=== PATIENT | male | born 1950 | race Caucasian/White ===

== ENCOUNTER 2023-04-06 14:26 | Outpatient (AMB) | payer MEDICARE, SELFPAY ==
--- NOTE | 2023-04-06 14:57 | HO.NEPHOV ---
HPI HPI Comments History of Present Illness Details I had the privilege of seeing Mr. 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 He has history of coronary artery disease( mid LAD) needing stenting in 2016. His last carotid ultrasound showed less than 50% stenosis bilaterally. He had 2 episodes of syncopal episodes which was thought to be due to orthostasis. He is on multiple antihypertensive medications including amlodipine 5 mg twice daily, carvedilol 3.125 mg twice daily, ruled chlorthalidone 12.5 mg daily, olmesartan 40 mg daily. He has not had an echocardiogram from long time. His renal functions are normal. He does not have any chest pain, shortness of breath, proximal nocturnal dyspnea, orthopnea, pedal edema, hematuria or orthostatic symptoms. He was accompanied by his during this visit and not have any specific complaints. REPLACED BY [facility] Medical History (Updated 04/06/23 @ 15:54 by Goran Madera MD) Syncope Sebaceous cyst Right knee pain Macrocytosis Hypertension Hyperlipidemia H/O adenomatous polyp of colon Edema leg Erectile disorder Coronary arteriosclerosis Adjustment disorder Surgical History (Updated 04/06/23 @ 15:03 by Angely Castro MA) History of hip replacement History of surgery on arm H/O colonoscopy H/O coronary angioplasty Social History (Updated 04/06/23 @ 15:04 by Angely Castro MA) Alcohol intake: current Comment: Occasional Patient Tobacco Use Status: Never used Tobacco Vital Signs 04/06/23 14:58 Height 5 ft 8 in Weight 183 lb 2 oz BMI 27.8 BP 122/80 Blood Pressure Location Lt brachial Position Sitting Pulse 58 Pulse Source Pulse Oximeter Pulse Oximetry (%) 97 Oxygen Delivery Method Room Air Physical Exam Vital Signs: Last Vital Signs Pulse 58 04/06/23 14:58 BP 122/80 04/06/23 14:58 Pulse Ox 97 04/06/23 14:58 Oxygen Delivery Method Room Air 04/06/23 14:58 BMI result Body Mass Index 27.8 Const General: comfortable and no acute distress Orientation/consciousness: patient oriented x3 HEENT Head: Yes normocephalic Mouth: Normal oral and palatal mucosa present Eyes EOM: EOMs intact bilaterally Neck Other: Carotid bruit present Neck: Yes supple Resp Auscultation: clear to auscultation bilaterally Cardio Jugular venous distension: no JVD Rate: regular rate GI Palpation (GI): Soft to palpation Auscultation: normal bowel sounds General: Yes no CVA tenderness Back/Spine/Pelvis Back: no CVA tenderness Skin General skin exam: no rashes or lesions noted Neuro General: patient oriented x3 and moves all extremities Extrem General: Yes no pedal edema Assessment & Plan Assessment & Plan (1) Hypertension: Code(s): I10 - Essential (primary) hypertension Qualifiers: Hypertension type: primary hypertension Qualified Code(s): I10 - Essential (primary) hypertension Plan Mr. Javier most likely has renovascular disease. He has history of coronary artery disease needing stenting of the mid LAD in 2016. His last carotid ultrasound showed bilateral stenosis less than 50%. He never had Doppler of his renal arteries. He has no history of hypokalemia or worsening serum creatinine. He is tolerating all medications including statins. He had episodes of syncope which was thought due to orthostatic hypotension. He has not had an echocardiogram for long time. If his ejection fraction is appropriate, I plan to switch is carvedilol to metoprolol. He has no history of heart failure. He does not consume excess sodium in the diet. He maintains good hydration. I did not make any medication changes at this time but shall consider switching his antihypertensive medications to keep it minimal in number & also can keep his blood pressure at goal. Further management is pending evolving data. Answered all questions. Follow-up appointment given. Orders: Orders US renal BI 04/06/23 I10 - Essential (primary) hypertension US renal doppler 04/06/23 I10 - Essential (primary) hypertension Coding Level of Care Code New Pt Level 4 (15271) Diagnoses Primary hypertension I10 Hypertension type: primary hypertension Results Reviewed Nephrology Results: No Data to Display
[2023-04-06 14:58] VITALS: BP 122/80; PULSE 58; O2SAT 97; BMI 27.8
== END 2023-04-06 16:02 | disposition home or self-care (01) ==
PROVIDERS: PCP Family Medicine; Visit Provider Internal Medicine Nephrology
DX: I10 Essential (primary) hypertension (principal)
CPT/HCPCS: 99204

== ENCOUNTER → 2023-04-06 14:26 | Outpatient (BNVA) | payer MEDICARE, SELFPAY | PROVIDERS: PCP Family Medicine; Visit Provider Internal Medicine Nephrology | DX: I10 Essential (primary) hypertension (principal) | CPT/HCPCS: 99202 ==

== ENCOUNTER 2023-05-02 08:45 | Outpatient (REF) | payer MEDICARE, SELFPAY ==
--- NOTE | ~2023-05-02 | US_ITS ---
EXAMINATION: ULTRASOUND RENAL WITH DOPPLER CLINICAL INFORMATION: Hypertension COMPARISON: None. TECHNIQUE: Real-time grayscale, color Doppler, and duplex Doppler evaluation of the kidneys and renal vasculature was performed. FINDINGS: RENAL MEASUREMENTS: Right: 14.3 x 7.3 x 4.1 cm (Sag x AP x TV) Left: 12.4 x 6.2 x 6.6 cm (Sag x AP x TV) Multiple anechoic simple cysts seen throughout the bilateral kidneys. There is a 1 cyst in the left mid kidney middle pole measuring 3.1 x 3.6 x 3.6 cm that contains a small mural nodule. Bilateral renal parenchyma is otherwise unremarkable. No hydronephrosis bilaterally. Incidental note made of multiple right hepatic cysts. DOPPLER INTERROGATION: Aorta: 114 cm/sec Right Main Renal Artery: Proximal: 134 cm/sec Mid: 67.0 cm/sec Distal: 81.2 cm/sec Right Segmental Renal Artery Resistive Indices: Upper: 0.68 Mid: 0.68 Lower: 0.69 Left Main Renal Artery: Proximal: 110 cm/sec Mid: 60.5 cm/sec Distal: 133 cm/sec Left Segmental Renal Artery Resistive Indices: Upper: 0.66 Mid: 0.74 Lower: 0.7 The bilateral renal veins are patent. US/US renal doppler IMPRESSION: Normal duplex ultrasound of the renal arteries. Multiple bilateral renal cysts, most of which are simple in nature. One cyst in the left mid pole has a small mural nodule. Lesion is Bosniak 2F recommend follow-up with MRI
--- NOTE | ~2023-05-02 | US_ITS ---
EXAMINATION: ULTRASOUND RENAL WITH DOPPLER CLINICAL INFORMATION: Hypertension COMPARISON: None. TECHNIQUE: Real-time grayscale, color Doppler, and duplex Doppler evaluation of the kidneys and renal vasculature was performed. FINDINGS: RENAL MEASUREMENTS: Right: 14.3 x 7.3 x 4.1 cm (Sag x AP x TV) Left: 12.4 x 6.2 x 6.6 cm (Sag x AP x TV) Multiple anechoic simple cysts seen throughout the bilateral kidneys. There is a 1 cyst in the left mid kidney middle pole measuring 3.1 x 3.6 x 3.6 cm that contains a small mural nodule. Bilateral renal parenchyma is otherwise unremarkable. No hydronephrosis bilaterally. Incidental note made of multiple right hepatic cysts. DOPPLER INTERROGATION: Aorta: 114 cm/sec Right Main Renal Artery: Proximal: 134 cm/sec Mid: 67.0 cm/sec Distal: 81.2 cm/sec Right Segmental Renal Artery Resistive Indices: Upper: 0.68 Mid: 0.68 Lower: 0.69 Left Main Renal Artery: Proximal: 110 cm/sec Mid: 60.5 cm/sec Distal: 133 cm/sec Left Segmental Renal Artery Resistive Indices: Upper: 0.66 Mid: 0.74 Lower: 0.7 The bilateral renal veins are patent. US/US renal BI IMPRESSION: Normal duplex ultrasound of the renal arteries. Multiple bilateral renal cysts, most of which are simple in nature. One cyst in the left mid pole has a small mural nodule. Lesion is Bosniak 2F recommend follow-up with MRI
== END 2023-05-02 08:46 | disposition home or self-care (01) ==
LOC: HO.US 08:45
PROVIDERS: PCP Family Medicine; Visit Provider Internal Medicine Nephrology
DX: I10 Essential (primary) hypertension (principal)
CPT/HCPCS: 76775; 93975

== ENCOUNTER 2023-05-04 10:53 | Outpatient (AMB) | payer MEDICARE, SELFPAY ==
[2023-05-04 11:22] VITALS: BP 138/74; PULSE 62; O2SAT 95; BMI 28.3
--- NOTE | 2023-05-04 11:22 | HO.NEPHOV ---
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 He has history of coronary artery disease( mid LAD) needing stenting in 2016. His last carotid ultrasound showed less than 50% stenosis bilaterally. He had 2 episodes of syncopal episodes which was thought to be due to orthostasis. He is on multiple antihypertensive medications including amlodipine 5 mg twice daily, carvedilol 3.125 mg twice daily, ruled chlorthalidone 12.5 mg daily, olmesartan 40 mg daily. He has not had an echocardiogram from long time. His renal functions are normal. He does not have any chest pain, shortness of breath, proximal nocturnal dyspnea, orthopnea, pedal edema, hematuria or orthostatic symptoms. He was accompanied by his during this visit and not have any specific complaints. He had normal Doppler ultrasound of the renal arteries. He had multiple bilateral renal cysts most of which are simple in nature. One cyst in the left pole has small mural nodule. The lesion is Bosniak 2 F and the radiologist has recommended follow-up with the MRI. [facility] Medical History (Updated 05/11/23 @ 21:30 by Goran Madera MD) Syncope Sebaceous cyst Right knee pain Macrocytosis Hypertension Hyperlipidemia H/O adenomatous polyp of colon Edema leg Erectile disorder Coronary arteriosclerosis Adjustment disorder Surgical History History of hip replacement History of surgery on arm H/O colonoscopy H/O coronary angioplasty Social History Alcohol intake: current Comment: Occasional Patient Tobacco Use Status: Never used Tobacco Vital Signs 05/04/23 11:22 Height 5 ft 8 in Weight 186 lb 2 oz BMI 28.3 BP 138/74 Blood Pressure Location Lt brachial Position Sitting Pulse 62 Pulse Source Pulse Oximeter Pulse Oximetry (%) 95 Oxygen Delivery Method Room Air Physical Exam Vital Signs: Last Vital Signs Pulse 62 05/04/23 11:22 BP 138/74 05/04/23 11:22 Pulse Ox 95 05/04/23 11:22 Oxygen Delivery Method Room Air 05/04/23 11:22 BMI result Body Mass Index 28.3 Const General: comfortable and no acute distress Orientation/consciousness: patient oriented x3 HEENT Head: Yes normocephalic Mouth: Normal oral and palatal mucosa present Eyes EOM: EOMs intact bilaterally Neck Neck: Yes supple Resp Auscultation: clear to auscultation bilaterally Cardio Jugular venous distension: no JVD Rate: regular rate GI Palpation (GI): Soft to palpation Auscultation: normal bowel sounds General: Yes no CVA tenderness Back/Spine/Pelvis Back: no CVA tenderness Skin General skin exam: no rashes or lesions noted Neuro General: patient oriented x3 and moves all extremities Extrem General: Yes no pedal edema Assessment & Plan Assessment & Plan (1) Hypertension: Code(s): I10 - Essential (primary) hypertension Qualifiers: Hypertension type: primary hypertension Qualified Code(s): I10 - Essential (primary) hypertension (2) Renal cyst: Code(s): N28.1 - Cyst of kidney, acquired Plan Mr. Javier most likely has vascular disease. He has history of coronary artery disease needing stenting of the mid LAD in 2016. His last carotid ultrasound showed bilateral stenosis less than 50%. Doppler of his renal arteries did not show any significant renal artery stenosis. He has no history of hypokalemia or worsening serum creatinine. He is tolerating all medications including statins. He had episodes of syncope which was thought due to orthostatic hypotension. He has not had an echocardiogram for long time. If his ejection fraction is appropriate, I plan to switch is carvedilol to metoprolol, when he returns from [facility] in . He has no history of heart failure. He does not consume excess sodium in the diet. He maintains good hydration. I did not make any medication changes at this time but shall consider switching his antihypertensive medications to keep it minimal in number & also can keep his blood pressure at goal. I shall arrange MRI of the renal cyst when he is back from [facility]. Further management is pending evolving data. Answered all questions. Follow-up appointment given. Coding Level of Care Code Est Pt Level 4 (60158) Diagnoses Primary hypertension I10 Hypertension type: primary hypertension Renal cyst N28.1 Results Reviewed Nephrology Results: Renal US 05/02/23
== END 2023-05-04 12:00 | disposition home or self-care (01) ==
LOC: HO.HKAS 10:53
PROVIDERS: PCP Family Medicine; Visit Provider Internal Medicine Nephrology
DX: I10 Essential (primary) hypertension (principal); N28.1 Cyst of kidney, acquired
CPT/HCPCS: 99214

== ENCOUNTER → 2023-05-04 10:53 | Outpatient (BNVA) | payer MEDICARE, SELFPAY | PROVIDERS: PCP Family Medicine; Visit Provider Internal Medicine Nephrology | DX: I10 Essential (primary) hypertension (principal); N28.1 Cyst of kidney, acquired | CPT/HCPCS: 99212 ==

== ENCOUNTER 2023-10-19 11:20 | Outpatient (AMB) | payer MEDICARE, SELFPAY ==
[2023-10-19 11:23] VITALS: BP 120/80; PULSE 54; O2SAT 98; BMI 28.1
--- NOTE | 2023-10-19 11:23 | HO.NEPHOV ---
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 He has history of coronary artery disease( mid LAD) needing stenting in 2016. His last carotid ultrasound showed less than 50% stenosis bilaterally. He had 2 episodes of syncopal episodes which was thought to be due to orthostasis. He is on multiple antihypertensive medications including amlodipine 5 mg twice daily, carvedilol 3.125 mg twice daily, ruled chlorthalidone 12.5 mg daily, olmesartan 40 mg daily. He has not had an echocardiogram from long time. His renal functions are normal. He does not have any chest pain, shortness of breath, proximal nocturnal dyspnea, orthopnea, pedal edema, hematuria or orthostatic symptoms. He had normal Doppler ultrasound of the renal arteries. He had multiple bilateral renal cysts most of which are simple in nature. One cyst in the left pole has small mural nodule. The lesion is Bosniak 2 F and the radiologist has recommended follow-up with the MRI ( but cannot have as he has metal in the body). [facility] Medical History (Updated 05/11/23 @ 21:30 by Goran Madera MD) Syncope Sebaceous cyst Right knee pain Macrocytosis Hypertension Hyperlipidemia H/O adenomatous polyp of colon Edema leg Erectile disorder Coronary arteriosclerosis Adjustment disorder Surgical History History of hip replacement History of surgery on arm H/O colonoscopy H/O coronary angioplasty Social History Alcohol intake: current Comment: Occasional Patient Tobacco Use Status: Never used Tobacco Review of Systems Const All systems reviewed & are unremarkable except as noted in HPI and below Physical Exam Vital Signs: Last Vital Signs Pulse 54 10/19/23 11:23 BP 140/80 H 10/19/23 11:23 Pulse Ox 98 10/19/23 11:23 Oxygen Delivery Method Room Air 10/19/23 11:23 BMI result Body Mass Index 28.1 Results Reviewed Nephrology Results: Renal US 05/02/23 Assessment & Plan Assessment & Plan (1) Hypertension: Code(s): I10 - Essential (primary) hypertension Category: Medical Qualifiers: Hypertension type: primary hypertension Qualified Code(s): I10 - Essential (primary) hypertension (2) Renal cyst: Code(s): N28.1 - Cyst of kidney, acquired Category: Medical Plan Mr. Javier most likely has vascular disease. He has history of coronary artery disease needing stenting of the mid LAD in 2016. His last carotid ultrasound showed bilateral stenosis less than 50%. Doppler of his renal arteries did not show any significant renal artery stenosis. He has no history of hypokalemia or worsening serum creatinine. He is tolerating all medications including statins. He has an echocardiogram coming up soon. If his ejection fraction is appropriate, I plan to switch is carvedilol to metoprolol. He has no history of heart failure. He does not consume excess sodium in the diet. He maintains good hydration. I did not make any medication changes at this time but shall consider switching his antihypertensive medications to keep it minimal in number & also can keep his blood pressure at goal. I wanted to have MRI of the renal cyst but could not as he has metal in his body. Shall order an USS/CT after next visit. Further management is pending evolving data. Answered all questions. Follow-up appointment given. Orders: Orders Creatinine Today I10 - Essential (primary) hypertension, N28.1 - Cyst of kidney, acquired Protein Creatinine Ratio, Ur Today I10 - Essential (primary) hypertension, N28.1 - Cyst of kidney, acquired Blood Urea Nitrogen Today I10 - Essential (primary) hypertension, N28.1 - Cyst of kidney, acquired Electrolytes Today I10 - Essential (primary) hypertension, N28.1 - Cyst of kidney, acquired Coding Level of Care Code Est Pt Level 4 (89216) Diagnoses Primary hypertension I10 Hypertension type: primary hypertension Renal cyst N28.1
== END 2023-10-19 11:44 | disposition home or self-care (01) ==
LOC: HO.HKAS 11:20
PROVIDERS: PCP Family Medicine; Visit Provider Internal Medicine Nephrology
DX: I10 Essential (primary) hypertension (principal); N28.1 Cyst of kidney, acquired
CPT/HCPCS: 99214

== ENCOUNTER → 2023-10-19 11:20 | Outpatient (BNVA) | payer MEDICARE, SELFPAY | PROVIDERS: PCP Family Medicine; Visit Provider Internal Medicine Nephrology | DX: I10 Essential (primary) hypertension (principal); N28.1 Cyst of kidney, acquired | CPT/HCPCS: 99212 ==

== ENCOUNTER 2024-04-18 10:22 | Outpatient (AMB) | payer MEDICARE, SELFPAY ==
--- NOTE | 2024-04-18 11:07 | HO.NEPHOV_ITS ---
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 He has history of coronary artery disease( mid LAD) needing stenting in 2016. His last carotid ultrasound showed less than 50% stenosis bilaterally. He had 2 episodes of syncopal episodes which was thought to be due to orthostasis. He is on multiple antihypertensive medications including amlodipine 5 mg twice daily, carvedilol 3.125 mg twice daily, ruled chlorthalidone 12.5 mg daily, olmesartan 40 mg daily. He has not had an echocardiogram from long time. His renal functions are normal. He does not have any chest pain, shortness of breath, proximal nocturnal dyspnea, orthopnea, pedal edema, hematuria or orthostatic symptoms. He had normal Doppler ultrasound of the renal arteries. He had multiple bilateral renal cysts most of which are simple in nature. One cyst in the left pole has small mural nodule. The lesion is Bosniak 2 F and the radiologist has recommended follow-up with the MRI ( but cannot have as he has metal in the body). [facility] Medical History (Updated 05/11/23 @ 21:30 by Goran Madera MD) Syncope Sebaceous cyst Right knee pain Macrocytosis Hypertension Hyperlipidemia H/O adenomatous polyp of colon Edema leg Erectile disorder Coronary arteriosclerosis Adjustment disorder Surgical History History of hip replacement History of surgery on arm H/O colonoscopy H/O coronary angioplasty Social History Alcohol intake: current Comment: Occasional Patient Tobacco Use Status: Never used Tobacco Review of Systems Const All systems reviewed & are unremarkable except as noted in HPI and below Physical Exam Vital Signs: Last Vital Signs Pulse 54 04/18/24 11:09 BP 150/80 H 04/18/24 11:09 Pulse Ox 99 03/13/25 11:09 Oxygen Delivery Method Room Air 04/18/24 11:09 BMI result Body Mass Index 27.0 Const General: comfortable and no acute distress Orientation/consciousness: patient oriented x3 HEENT Head: Yes normocephalic Mouth: Normal oral and palatal mucosa present Eyes EOM: EOMs intact bilaterally Neck Neck: Yes supple Resp Auscultation: clear to auscultation bilaterally Cardio Jugular venous distension: no JVD Rate: regular rate Heart sounds: Murmur heart sound present GI Palpation (GI): Soft to palpation Auscultation: normal bowel sounds Skin General skin exam: no rashes or lesions noted Neuro General: patient oriented x3 and moves all extremities Extrem General: Yes no pedal edema Results Reviewed Nephrology Results: Renal US 05/02/23 Assessment & Plan Assessment & Plan (1) Hypertension: Code(s): I10 - Essential (primary) hypertension Category: Medical Qualifiers: Hypertension type: primary hypertension Qualified Code(s): I10 - Essential (primary) hypertension (2) Renal cyst: Code(s): N28.1 - Cyst of kidney, acquired Category: Medical Plan Mr. Javier most likely has vascular disease. He has history of coronary artery disease needing stenting of the mid LAD in 2016. His last carotid ultrasound showed bilateral stenosis less than 50%. Doppler of his renal arteries did not show any significant renal artery stenosis. He has no history of hypokalemia or worsening serum creatinine. He is tolerating all medications including statins. He does not consume excess sodium in the diet. He maintains good hydration. I did not make any medication changes at this time but shall consider switching his antihypertensive medications to keep it minimal in number & also can keep his blood pressure at goal. I wanted to have MRI of the renal cyst but could not as he has metal in his body. Shall order an CT after next visit. Further management is pending evolving data. Answered all questions. Follow-up appointment given. Orders: Orders Creatinine 6 Months I10 - Essential (primary) hypertension, N28.1 - Cyst of kidney, acquired Blood Urea Nitrogen 6 Months I10 - Essential (primary) hypertension, N28.1 - Cyst of kidney, acquired Electrolytes 6 Months I10 - Essential (primary) hypertension, N28.1 - Cyst of kidney, acquired Coding Level of Care Code Est Pt Level 4 (06815) Diagnoses Primary hypertension I10 Hypertension type: primary hypertension Renal cyst N28.1
[2024-04-18 11:09] VITALS: BP 120/80; PULSE 54; O2SAT 99; BMI 27.0
--- OUTSIDE RECORDS SUMMARY | 2024-04-18 12:56 | XMS_ITS | Clinical Summary ---
Author Organization [facility] Address [address] [place] [address] Care Team Providers Care Er Manager Name Role Phone Herman Lin MD Primary Care Provider [phone] Allergies No known active allergies Medications Medication Sig Dispensed Refills Start Date End Date Status acetaminophen (TYLENOL) 325 MG tablet Take 2 tablets (650 mg total) by mouth every 6 (six) hours as needed for pain or fever. 30 tablet 0 11/25/2013 Active carvedilol (COREG) 6.25 MG tablet Take 6.25 mg by mouth every 12 (twelve) hours. 0 04/21/2015 Active atorvastatin (LIPITOR) tablet 40 mg Take 40 mg by mouth daily. 0 04/21/2015 Active aspirin EC 81 MG tablet Take 81 mg by mouth every night at bedtime. 0 Active clopidogrel (PLAVIX) 75 MG tablet Take 1 tablet (75 mg total) by mouth daily. 90 tablet 3 05/01/2015 Active Active Problems Problem Noted Date Diagnosed Date Osteoarthritis of hip 11/27/2013 Family History Medical History Relation Name Comments Heart disease Other Relation Name Status Comments Other Social History Tobacco Use Types Packs/Day Years Used Date Smoking Tobacco: Never Smokeless Tobacco: Never Alcohol Use Standard Drinks/Week Comments Yes 0 (1 standard drink = 0.6 oz pur e alcohol) socially Sex and Gender Information Value Date Recorded Sex Assigned at Not on file Gender Identity Not on file Sexual Orientation Not on file Job Start Date Occupation Industry Not on file Not on file Not on file Last Filed Vital Signs Vital Sign Reading Time Taken Comments Blood Pressure 162/86 12/25/2017 3:40 PM EST Pulse 55 12/25/2017 3:40 PM EST Temperature 36.6 ??C (97.8 ??F) 12/25/2017 3:40 PM ES T Respiratory Rate 18 05/01/2015 8:43 AM EDT Oxygen Saturation 98% 05/01/2015 8:43 AM EDT Inhaled Oxygen Concentration - - Weight 89.8 kg (198 lb) 12/25/2017 3:40 PM EST Height 172.1 cm (5' 7.75 ) 12/25/2017 3:40 PM ES T Body Mass Index 30.33 12/25/2017 3:40 PM EST Plan of Treatment Health Maintenance Due Date Last Done Comments Hepatitis C Screening 1950 COVID-19 Vaccine (#1) 03[birth year]10/1951 Depression Screening 1963 Preventative Health Evaluation 09/07/1969 DTap / Tdap / Td (1 - Tdap) 09/07/1970 Colon Cancer Screening (Colonoscopy) 09/07/1996 Shingrix-Zoster Vaccine (1 of 2) 09/07/2001 Fall Risk Assessment 09/07/2016 Pneumococcal Vaccine (1 of 1 - PCV) 09/07/2016 Influenza Vaccine (#1) 2023 RSV Adult > 60+ Yrs or Pregn ant (1 - 1-dose 75+ series) 09/07/2026 Hepatitis B Vaccines Aged Out No long er eligible based on patient's age to complete this topic RSV Ped < 20 months Aged Out No longe r eligible based on patient's age to complete this topic Medical Devices Implanted Type Area Racebook Writer Device Identifier Shelf Expiration Date Model / Serial / Lot Shell Trident Psl Mdm F 56mm 57.8mm Cluster Rim Larsen X3 - [id number] - [id number] Implanted:Qty: 1 on 11/25/2013 by Maxi Darling MD at [facility] Left: Hip [employer] 11/05/2018 542-11-56F / / [id number] Screw Trident 25mm 6.5mm Titanium Acetabular Cancellous - [id number] - [id number] Implanted:Qty: 1 on 11/25/2013 by Maxi Darling MD at [facility] Left: Hip [facility] 08/05/2018 4343-3871- 1 / / [id number] Screw Trident 25mm 6.5mm Titanium Acetabular Cancellous - [id number] - [id number] Implanted:Qty: 1 on 11/25/2013 by Maxi Darling MD at [facility] Left: Hip [employer] 11/05/2018 [id number]- 1 / / [id number] Insert Trident 10d F 36mm X3 Acetabular Hip - [id number] - [id number] Implanted:Qty: 1 on 11/25/2013 by Maxi Darling MD at [facility] Left: Hip [employer] 11/05/2018 623-10-36F / / [id number] Stem Secur-Fit Plus 9 150mm 35mm 13mm Primary Larsen Femoral Hip - [id number] - [id number] Implanted:Qty: 1 on 11/25/2013 by Maxi Darling MD at [facility] Left: Hip [employer] [facility] 10/06/2018 [id number] / / [id number] Head Femoral 36mm Jessi 0 Neck [place] Chrome C-Taper Low Frict - [id number] - [id number] Implanted:Qty: 1 on 11/25/2013 by Maxi Darling MD at [facility] Left: Hip [employer] [facility] 03/08/2016 06-3600 / / [id number] Stent Resolute Integrity 30mm 2.75mm 1 Strand Rapdx - [id number] - [id number] Implanted:04/29 at [facility] (Quantity not on file) [employer] - VASCULAR [id number] / / Advance Directives For more information, please contact: [phone] Latest Code Status on File Code Status Date Activated Date Inactivated Comments Full Code 11/25/2013 9:17 AM 11/26/2013 9:42 PM Thi s code status was ascertained in the following way: discussion with patient. Code Status History Code Status Date Activated Date Inactivated Comments Full Code 11/25/2013 5:58 AM 11/25/2013 9:17 AM Thi s code status was ascertained in the following way: discussion with patient. Care Teams Er Manager Relationship Specialty Start Date End Date Herman Lin MD [address] [place] [address] PCP - General Family Medicine 12/11/17
== END 2024-04-18 11:28 | disposition home or self-care (01) ==
LOC: HO.HKAS 10:23
PROVIDERS: PCP Family Medicine; Visit Provider Internal Medicine Nephrology
DX: I10 Essential (primary) hypertension (principal); N28.1 Cyst of kidney, acquired
CPT/HCPCS: 99214

== ENCOUNTER → 2024-04-18 10:22 | Outpatient (BNVA) | payer MEDICARE, SELFPAY | PROVIDERS: PCP Family Medicine; Visit Provider Internal Medicine Nephrology | DX: I10 Essential (primary) hypertension (principal); I25.10 Atherosclerotic heart disease of native coronary artery without angina pectoris; N28.1 Cyst of kidney, acquired; Z95.828 Presence of other vascular implants and grafts; Z79.899 Other long term (current) drug therapy | CPT/HCPCS: 99212 ==

== ENCOUNTER 2024-12-03 09:15 | Outpatient (AMB) | payer MEDICARE, SELFPAY ==
--- NOTE | 2024-12-03 09:25 | HO.NEPHOV ---
Vital Signs 12/03/24 09:27 Height 5 ft 8 in Weight 179 lb 2 oz BMI 27.2 BP 150/60 H Blood Pressure Location Lt brachial Position Sitting Pulse 70 Pulse Source Pulse Oximeter Pulse Oximetry (%) 99 Oxygen Delivery Method Room Air Intake Visit Reasons: Nov-Dec follow-up w/labs-Conf W/ Machine Bander And Cellophaner Helper Required: No Accompanied by: Self / Same As Patient Allergies No Known Allergies Allergy (Verified 12/03/24 09:27) HPI Comments Details: I had the privilege of seeing Mr. 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 He has history of coronary artery disease( mid LAD) needing stenting in 2016. His last carotid ultrasound showed less than 50% stenosis bilaterally. He had 2 episodes of syncopal episodes which was thought to be due to orthostasis. He is on multiple antihypertensive medications including amlodipine 5 mg twice daily, carvedilol 3.125 mg twice daily, ruled chlorthalidone 12.5 mg daily, olmesartan 40 mg daily. He has not had an echocardiogram from long time. His renal functions are normal. He does not have any chest pain, shortness of breath, proximal nocturnal dyspnea, orthopnea, pedal edema, hematuria or orthostatic symptoms. He had normal Doppler ultrasound of the renal arteries. He had multiple bilateral renal cysts most of which are simple in nature. One cyst in the left pole has small mural nodule. The lesion is Bosniak 2 F and the radiologist has recommended follow-up with the MRI ( but cannot have as he has metal in the body). [facility] Medical History (Updated 05/11/23 @ 21:30 by Goran Madera MD) Syncope Sebaceous cyst Right knee pain Macrocytosis Hypertension Hyperlipidemia H/O adenomatous polyp of colon Edema leg Erectile disorder Coronary arteriosclerosis Adjustment disorder Surgical History History of hip replacement History of surgery on arm H/O colonoscopy H/O coronary angioplasty Social History Alcohol intake: current Comment: Occasional Patient Tobacco Use Status: Never used Tobacco Review of Systems Const All systems reviewed & are unremarkable except as noted in HPI and below Physical Exam Const General: comfortable and no acute distress Orientation/consciousness: patient oriented x3 HEENT Head: Yes normocephalic Mouth: Normal oral and palatal mucosa present Eyes EOM: EOMs intact bilaterally Neck Neck: Yes supple Resp Auscultation: clear to auscultation bilaterally Cardio Jugular venous distension: no JVD Rate: regular rate GI Palpation (GI): Soft to palpation Auscultation: normal bowel sounds General: Yes no CVA tenderness Back/Spine/Pelvis Back: no CVA tenderness Skin General skin exam: no rashes or lesions noted Neuro General: patient oriented x3 and moves all extremities Extrem General: Yes no pedal edema Results Reviewed Nephrology Results: Renal US 05/02/23 Assessment & Plan Assessment & Plan (1) Renal cyst: Code(s): N28.1 - Cyst of kidney, acquired Category: Medical (2) Hypertension: Code(s): I10 - Essential (primary) hypertension Category: Medical Qualifiers: Hypertension type: primary hypertension Qualified Code(s): I10 - Essential (primary) hypertension Plan Mr. Javier most likely has vascular disease. He has history of coronary artery disease needing stenting of the mid LAD in 2016. His last carotid ultrasound showed bilateral stenosis less than 50%. Doppler of his renal arteries did not show any significant renal artery stenosis. He has no history of hypokalemia or worsening serum creatinine. He is tolerating all medications including statins. He does not consume excess sodium in the diet. He maintains good hydration. I did not make any medication changes at this time but shall consider switching his antihypertensive medications to keep it minimal in number & also can keep his blood pressure at goal. I wanted to have MRI of the renal cyst but could not as he has metal in his body. I shall order a CT for its follow up @ next visit . Answered all questions. Follow-up appointment given. Coding Level of Care Code Est Pt Level 4 (26237) Diagnoses Renal cyst N28.1 Primary hypertension I10 Hypertension type: primary hypertension
[2024-12-03 09:27] VITALS: BP 150/60; PULSE 70; O2SAT 99; BMI 27.2
--- OUTSIDE RECORDS SUMMARY | 2024-12-03 10:21 | XMS_ITS | Clinical Summary ---
Author Organization [facility] Address [address] [place] [address] Care Team Providers Care Assistant Attorney General Name Role Phone Herman Lin MD Primary Care Provider [phone] Allergies No known active allergies Medications Medication [...] 55 12/25/2017 3:40 PM EST Temperature 36.6 C (97.8 F) 12/25/2017 3:40 PM EST Respiratory Rate 18 05/01/2015 8:43 AM EDT [...] 1 - PCV) 09/07/2016 Influenza Vaccine (#1) 2024 RSV Adult > 60+ Yrs or Pregn ant (1 - 1-dose 75+ series) 09/07/2026 Hepatitis B Vaccines Aged Out No long er eligible based on patient's age to complete this topic RSV Ped < 20 months Aged Out No longe r eligible based on patient's age to complete this topic Medical Devices Implanted Type Area Mortgage Closer Device Identifier Shelf Expiration Date Model / Serial / Lot Shell Trident Psl Mdm F 56mm 57.8mm Cluster Rim Larsen X3 - [id number] - [id number] Implanted:Qty: 1 on 11/25/2013 by Maxi Darling MD at [facility] [place] [facility] Left: Hip [facility] 11/05/2018 542-11-56F / / [id number] Screw Trident 25mm 6.5mm Titanium Acetabular Cancellous - [id number] - [id number] Implanted:Qty: 1 on 11/25/2013 by Maxi Darling MD at [facility] [place] [facility] Left: Hip [facility] 08/05/2018 2399-2986- 1 / / [id number] Screw Trident 25mm 6.5mm Titanium Acetabular Cancellous - [id number] - [id number] Implanted:Qty: 1 on 11/25/2013 by Maxi Darling MD at [facility] [place] [facility] Left: Hip [facility] 11/05/2018 [id number]- 1 / / [id number] Insert Trident 10d F 36mm X3 Acetabular Hip - [id number] - [id number] Implanted:Qty: 1 on 11/25/2013 by Maxi Darling MD at [facility] [place] [facility] Left: Hip [facility] 11/05/2018 623-10-36F / / [id number] Stem Secur-Fit Plus 9 150mm 35mm 13mm Primary [employer] Femoral Hip - [id number] - [id number] Implanted:Qty: 1 on 11/25/2013 by Maxi Darling MD at [facility] [place] [facility] Left: Hip [facility] 10/06/2018 6054-0913S / / [id number] Head Femoral 36mm Jessi 0 Neck [place] Chrome C-Taper Low Frict - [id number] - [id number] Implanted:Qty: 1 on 11/25/2013 by Maxi Darling MD at [facility] [place] [facility] Left: Hip [facility] 03/08/2016 06-3600 / / [id number] Stent Resolute Integrity 30mm 2.75mm 1 Strand Rapdx - [id number] - [id number] Implanted:04/29 at [facility] (Quantity not on file) [employer] - VASCULAR [id number] / / Advance Directives For more information, please contact: [phone] Latest Code Status on File Code Status [...] following way: discussion with patient. Care Teams Assistant Attorney General Relationship Specialty Start Date End Date Herman Lin MD [address] [place] [address] PCP - General Family Medicine 12/11/17
== END 2024-12-03 09:49 | disposition home or self-care (01) ==
LOC: HO.HKAS 09:16
PROVIDERS: PCP Family Medicine; Visit Provider Internal Medicine Nephrology
DX: N28.1 Cyst of kidney, acquired (principal); I10 Essential (primary) hypertension
CPT/HCPCS: 99214

== ENCOUNTER → 2024-12-03 09:15 | Outpatient (BNVA) | payer MEDICARE, SELFPAY | PROVIDERS: PCP Family Medicine; Visit Provider Internal Medicine Nephrology | DX: I10 Essential (primary) hypertension (principal); N28.1 Cyst of kidney, acquired | CPT/HCPCS: 99212 ==